=== PATIENT | male | born 1960 | race African-American/Black ===

== ENCOUNTER 2016-11-06 12:05 | Emergency (ER) | payer OTHER ==
--- NOTE | 2016-11-06 12:14 | ER Document Report ---
ED Medical Screen (RME) - General Chief Complaint: Headache Stated Complaint: HEAD ACHE Time seen by provider: 12:12 Mode of Arrival: Ambulatory Information source: Patient Notes: 56 yo male presents to ed for headache with elevated BP has hx of HTN TRAVEL OUTSIDE OF THE [place] IN LAST 30 DAYS: No - HPI Onset: Other - 3days Onset/Duration: Gradual Quality of pain: Throbbing Severity: Moderate Pain Level: 3 Associated Symptoms: Dizzy/lightheaded, Headache, Rhinorrhea, Sinus pain/ drainage, Other - htn. denies: Nausea, Vomiting Exacerbated by: Denies Relieved by: Denies Similar symptoms previously: Yes Recently seen / treated by doctor: Yes - Related Data Smoking: Non-smoker, Quit greater than 1 year Frequency of alcohol use: None Drug Abuse: None Allergies/Adverse Reactions: Penicillins Allergy (Verified 09/01/11 14:08) Past Medical History - Past Medical History Cardiac Medical History: Reports: Hx Hypertension Renal/ Medical History: Reports: Hx Kidney Stones - Immunizations Hx Diphtheria, Pertussis, Tetanus Vaccination: Yes
--- NOTE | 2016-11-06 13:54 | ER Document Report ---
ED Headache - General Chief Complaint: Headache Stated Complaint: HEAD ACHE Time seen by provider: 13:00 Mode of Arrival: Ambulatory Information source: Patient Notes: 56 yo hy;erlipidemic, htn [facility] due to sx of headache, worse on the left since wednesday, and vertigo when he stood yesterday, no weakness, but slept most of day. Hx CVA with right sided weakness in past. No known TIA. TRAVEL OUTSIDE OF THE [place] IN LAST 30 DAYS: No - Related Data Allergies/Adverse Reactions: Penicillins Allergy (Verified 11/06/16 12:12) prednisone Allergy (Verified 11/06/16 12:12) Past Medical History - General Information source: Patient - Social History Smoking Status: Former Smoker Chew tobacco use (# tins/day): No Frequency of alcohol use: None Drug Abuse: None Lives with: Spouse/Significant other Family History: None Patient has suicidal ideation: No Patient has homicidal ideation: No - Past Medical History Cardiac Medical History: Reports: Hx Hypercholesterolemia, Hx Hypertension Renal/ Medical History: Reports: Hx Kidney Stones Surgical Hx: Negative - Immunizations Hx Diphtheria, Pertussis, Tetanus Vaccination: Yes Review of Systems - Review of Systems Constitutional: No symptoms reported EENT: No symptoms reported Cardiovascular: No symptoms reported Respiratory: No symptoms reported Gastrointestinal: No symptoms reported Genitourinary: No symptoms reported Male Genitourinary: No symptoms reported Musculoskeletal: No symptoms reported Skin: No symptoms reported Hematologic/Lymphatic: No symptoms reported Neurological/Psychological: See HPI Physical Exam - Vital signs Vitals: Temp Pulse Resp BP Pulse Ox 97.8 F 84 16 134/87 H 96 11/06/16 12:14 11/06/16 12:14 11/06/16 12:14 11/06/16 12:14 11/06/16 12:14 Interpretation: Normal - General General appearance: Appears well, Alert - HEENT Head: Normocephalic, Atraumatic Eyes: Normal Conjunctiva: Normal Extraocular movements intact: Yes Pupils: PERRL Nerve palsy: No Tympanic membrane: Normal Mouth/Lips: Normal Pharynx: Normal Neck: Supple. No: Lymphadenopathy - Respiratory Respiratory status: No respiratory distress Chest status: Nontender Breath sounds: Normal Chest palpation: Normal - Cardiovascular Rhythm: Regular Heart sounds: Normal auscultation Murmur: No - Abdominal Inspection: Normal Distension: No distension Bowel sounds: Normal Tenderness: Nontender Organomegaly: No organomegaly - Back Back: Normal, Nontender - Extremities General upper extremity: Normal inspection, Nontender, Normal color, Normal ROM , Normal temperature General lower extremity: Normal inspection, Nontender, Normal color, Normal ROM , Normal temperature, Normal weight bearing. No: Jamal's sign - Neurological Neuro grossly intact: Yes Cognition: Normal Orientation: AAOx4 Edlma Coma Scale Eye Opening: Spontaneous Delma Coma Scale Verbal: Oriented Delma Coma Scale Motor: Obeys Commands [place] Coma Scale Total: 15 Speech: Normal Motor strength normal: LUE, RUE, LLE, RLE Sensory: Normal - Psychological Associated symptoms: Normal affect, Normal mood - Skin Skin Temperature: Warm Skin Moisture: Dry Skin Color: Normal Course - Re-evaluation Re-evalutation: 11/06/16 13:[address] Oropeza for any further testing needed, he examned pt. Negative HINTS testing. vitals stable. OK to go home. copy of ct report given to patient 11/07/16 17:11 - Vital Signs Vital signs: Temp Pulse Resp BP Pulse Ox 97.8 F 82 16 127/85 H 98 11/06/16 12:14 11/06/16 14:14 11/06/16 14:14 11/06/16 14:14 11/06/16 14:14 Discharge - Discharge Clinical Impression: vertigo yesterday Headache Qualifiers: Headache type: unspecified Headache chronicity pattern: acute headache Intractability: not intractable Qualified Code(s): R51 - Headache Condition: Good Disposition: HOME, SELF-CARE Instructions: Headache ([facility]), Meclizine ([facility]), Vertigo ([facility]) Additional Instructions: to er if symptoms recur copy of ct given to you [facility] Prescriptions: Meclizine HCl [Antivert 25 mg Tablet] 25 mg PO Q6HP PRN #20 tablet PRN Reason: Forms: Return to Work
[2016-11-06 14:24] VITALS: BP 127/85
== END 2016-11-06 14:25 | disposition home or self-care (01) ==
LOC: ER 12:05
DX: R51 Headache (principal); I10 Essential (primary) hypertension; Z86.73 Personal history of transient ischemic attack (TIA), and cerebral infarction without residual deficits; Z87.891 Personal history of nicotine dependence; Z88.0 Allergy status to penicillin; Z88.8 Allergy status to other drugs, medicaments and biological substances
CPT/HCPCS: 70450; 99284

== ENCOUNTER 2018-08-16 09:55 | Emergency (ER) | payer OTHER ==
--- NOTE | 2018-08-16 10:17 | ER Document Report ---
ED Medical Screen (RME) - General Chief Complaint: Abdominal Injury Stated Complaint: FALL,ABDOMINAL/BACK PAIN Time Seen by Provider: 08/16/18 10:02 Mode of Arrival: Ambulatory Information source: Patient Notes: 58-year-old male presents emergency department with complaints of lower back pain and lower abdominal pain s/p fall. Patient states that 2 days ago he fell through a floor. Patient states that he went down about 4 feet and landed on his abdomen. He denies any head injury or loss of consciousness. Patient states that he was able to get up and ambulate after the fall. He states that over the last 2 days he has been having lower back pain and lower abdominal pain. Patient describes the back pain as a burning sensation located in the left paraspinal muscles. He states that the pain is constant. It is worse with movement. He denies any alleviating factors. He is not taking any medication for the pain. Denies numbness, tingling, weakness, bowel or bladder incontinence. Patient states that he is currently on Plavix for CVA. Patient denies any melena, hematochezia, hematuria. I have greeted and performed a rapid initial assessment of this patient. A comprehensive ED assessment and evaluation of the patient, analysis of test results and completion of the medical decision making process will be conducted by additional ED providers. PHYSICAL EXAMINATION: GENERAL: Well-appearing, well-nourished and in no acute distress. HEAD: Atraumatic, normocephalic. EYES: Pupils equal round extraocular movements intact, conjunctiva are normal. ENT: Nares patent NECK: Normal range of motion LUNGS: No respiratory distress Musculoskeletal: Normal range of motion. Tenderness to palpation in the lumbar spine and Left paralumbar muscles. NEUROLOGICAL: Normal speech, normal gait. PSYCH: Normal mood, normal affect. SKIN: Warm, Dry, normal turgor, no rashes or lesions noted. TRAVEL OUTSIDE OF THE [place] IN LAST 30 DAYS: No - Related Data Allergies/Adverse Reactions: Penicillins Allergy (Verified 11/06/16 12:12) prednisone Allergy (Verified 11/06/16 12:12) Past Medical History - Social History Chew tobacco use (# tins/day): No Frequency of alcohol use: None Drug Abuse: None - Past Medical History Cardiac Medical History: Reports: Hx Hypercholesterolemia, Hx Hypertension Renal/ Medical History: Reports: Hx Kidney Stones. Denies: Hx Peritoneal Dialysis - Immunizations Hx Diphtheria, Pertussis, Tetanus Vaccination: Yes Physical Exam - Vital signs Vitals: Temp Pulse Resp BP Pulse Ox 97.8 F 72 16 146/93 H 98 08/16/18 10:03 08/16/18 10:03 08/16/18 10:03 08/16/18 10:03 08/16/18 10:03 Course - Vital Signs Vital signs: Temp Pulse Resp BP Pulse Ox 98.1 F 59 L 16 118/55 L 98 08/16/18 10:09 08/16/18 10:09 08/16/18 10:09 08/16/18 10:09 08/16/18 10:09
[2018-08-16 10:40] LABS: ABSOLUTE EOSINOPHILS # (AUTO) 0.3 10^3/uL (0.0-0.6); ABSOLUTE LYMPHOCYTES (AUTO) 1.5 10^3/uL (0.5-4.7); ABSOLUTE MONOCYTES (AUTO) 0.5 10^3/uL (0.1-1.4); ABSOLUTE NEUT (AUTO) 3.1 10^3/uL (1.7-8.2); BASOPHILS % (AUTO) 0.9 % (0-2); EOSINOPHILS % (AUTO) 5.2 % (0-6); HEMATOCRIT 42.1 % (37.9-51.0); HEMOGLOBIN 14.5 g/dL (13.5-17.0); LYMPHOCYTES % (AUTO) 28.2 % (13-45); MEAN CORPUSCULAR HEMOGLOBIN 30.4 pg (27.0-33.4); MEAN CORPUSCULAR HGB CONC 34.5 g/dL (32.0-36.0); MEAN CORPUSCULAR VOLUME 88 fl (80-97); MONOCYTES % (AUTO) 8.7 % (3-13); PLATELET COUNT 279 10^3/uL (150-450); RED BLOOD COUNT 4.78 10^6/uL (4.35-5.55); RED CELL DISTRIBUTION WIDTH 13.8 % (11.5-14.0); TOTAL CELLS COUNTED % (AUTO) 100 %; WHITE BLOOD COUNT 5.4 10^3/uL (4.0-10.5)
--- NOTE | 2018-08-16 10:41 | ER Document Report ---
ED General - General Chief Complaint: Abdominal Injury Stated Complaint: FALL,ABDOMINAL/BACK PAIN Time Seen by Provider: 08/16/18 10:02 Mode of Arrival: Ambulatory Notes: 58-year-old male presents emergency department with complaints of lower back pain and lower abdominal pain s/p fall 2 days ago he fell through a floor. Patient states that he went down about 4 feet and landed on his abdomen. He denies any head injury or loss of consciousness. Patient states that he was able to get up and ambulate after the fall. He states that over the last 2 days he has been having lower back pain and lower abdominal pain. Patient describes the back pain as a burning sensation located in the left paraspinal muscles. He states that the pain is constant. It is worse with movement. He denies any alleviating factors. TRAVEL OUTSIDE OF THE [place] IN LAST 30 DAYS: No - Related Data Allergies/Adverse Reactions: Penicillins Allergy (Verified 11/06/16 12:12) prednisone Allergy (Verified 11/06/16 12:12) Past Medical History - General Information source: Patient - Social History Smoking Status: Never Smoker Chew tobacco use (# tins/day): No Frequency of alcohol use: None Drug Abuse: None Family History: None Patient has suicidal ideation: No Patient has homicidal ideation: No - Past Medical History Cardiac Medical History: Reports: Hx Hypercholesterolemia, Hx Hypertension Renal/ Medical History: Reports: Hx Kidney Stones. Denies: Hx Peritoneal Dialysis - Immunizations Hx Diphtheria, Pertussis, Tetanus Vaccination: Yes Review of Systems - Review of Systems Constitutional: denies: Chills, Fever Cardiovascular: denies: Chest pain, Dyspnea Respiratory: denies: Short of breath Gastrointestinal: Abdominal pain. denies: Nausea, Vomiting, Blood streaked bowels, Black stools Genitourinary: denies: Dysuria, Hematuria Male Genitourinary: denies: Testicular pain Musculoskeletal: Back pain -: Yes All other systems reviewed and negative Physical Exam - Vital signs Vitals: Temp Pulse Resp BP Pulse Ox 97.8 F 72 16 146/93 H 98 08/16/18 10:03 08/16/18 10:03 08/16/18 10:03 08/16/18 10:03 08/16/18 10:03 - Notes Notes: GENERAL_APPEARANCE: well_nourished, alert, cooperative, no_acute_distress, no_ obvious_discomfort. VITALS: reviewed, see vital signs table. HEAD: no_swelling\tenderness on the head. EYES: PERRL, EOMI, conjunctiva_clear. NOSE: no_nasal_discharge. MOUTH: (-)decreased moisture. THROAT: no_throat_inflammation, no_airway_obstruction. no_lymphadenopathy NECK: supple, no_neck_tenderness, (-)thyromegaly. BACK: L4 paraspinal back_tenderness. CHEST_WALL: no_chest_tenderness. LUNGS: no_wheezing, no_rales, no_rhonchi, (-)accessory muscle use, good air exchange bilateral. HEART: normal_rate, normal_rhythm, normal_S1, normal_S2, (-)S3, (-)S4, no_ murmur, no_rub. ABDOMEN: normal_BS, soft, bilateral middle quadrant_abd_tenderness, (-)guarding , (-)rebound, no_organomegaly, no_abd_masses. EXTREMITIES: good pulses in all_extremities, no_swelling\tenderness in the extremities, no_edema. SKIN: warm, dry, good_color, no_rash. MENTAL_STATUS: speech_clear, oriented_X_3, normal_affect, responds_ appropriately to questions. NEURO: Neg Motor or Sensory Deficits on exam, CN 2-12 intact, DTR 2+ symmetric x 4, No cerbellar signs Course - Re-evaluation Re-evalutation: 08/16/18 10:40 58-year-old male presents to the emergency department with a fall. The patient was getting his house from her cane when he fell through some wet robson. He hit his abdomen. He is having abdomen and back pain. Will get a CT to assess for any kind of intra-abdominal trauma pathology. Free fluid. Back x-rays. 08/16/18 12:34 CT scans were normal without signs of free fluid in the abdomen no solid organ injury no obvious bowel injury. The back had some disc space narrowing but no fractures. His lab work was fairly normal except for a just a mildly elevated AST which may be just lab technique. Patient has no right upper quadrant abdominal discomfort. I spoke with the patient about this is likely just deep bruising in the abdomen and musculoskeletal type pain. I will give him some Flexeril for home just to help with relaxation and will have him use over-the- counter pain medicine and anti-inflammatories. He is okay with the plan I spoke with him and his . - Vital Signs Vital signs: Temp Pulse Resp BP Pulse Ox 98.1 F 59 L 16 118/55 L 98 08/16/18 10:09 08/16/18 10:09 08/16/18 10:09 08/16/18 10:09 08/16/18 10:09 - Laboratory Result Diagrams: 08/16/18 10:25 08/16/18 10:25 Laboratory results interpreted by me: 08/16/18 10:25 ALT 82 H - Diagnostic Test Radiology reviewed: Reports reviewed Radiology results interpreted by me: 08/16/18 12:33 Lumbar Spine X-Ray 08/16/18 10:13 IMPRESSION: Mild disc space narrowing at L5-S1. No acute findings. Abdomen/Pelvis CT 08/16/18 10:37 IMPRESSION: NO SIGNIFICANT OR ACUTE FINDING IN THE ABDOMEN OR PELVIS ON CT SCAN WITH IV CONTRAST. Discharge - Discharge Clinical Impression: Fall Qualifiers: Encounter type: initial encounter Qualified Code(s): W19.XXXA - Unspecified fall, initial encounter Injury of abdominal wall Qualifiers: Encounter type: initial encounter Qualified Code(s): S39.91XA - Unspecified injury of abdomen, initial encounter Low back sprain Qualifiers: Encounter type: initial encounter Qualified Code(s): S33.5XXA - Sprain of ligaments of lumbar spine, initial encounter Condition: Good Disposition: HOME, SELF-CARE Instructions: Low Back Pain ([facility]) Prescriptions: Cyclobenzaprine HCl [Flexeril 10 mg Tablet] 10 mg PO TIDP PRN #15 tab PRN Reason: Pain Scale Of 5 Forms: Return to School
[2018-08-16 10:48] LABS: APPEARANCE,URINE CLEAR; BILIRUBIN,URINE NEGATIVE (NEGATIVE); COLOR,URINE STRAW; GLUCOSE, URINE NEGATIVE (NEGATIVE); KETONES,URINE NEGATIVE (NEGATIVE); LEUKOCYTE ESTERASE,URINE NEGATIVE (NEGATIVE); NITRITE,URINE NEGATIVE (NEGATIVE); PROTEIN,URINE NEGATIVE (NEGATIVE); URINE SPECIFIC GRAVITY 1.014; UROBILINOGEN,URINE NEGATIVE mg/dL (<2.0)
--- NOTE | 2018-08-16 10:50 | RADIOLOGY REPORT (SQ) ---
EXAM DESCRIPTION: L SPINE 2 VIEWS COMPLETED DATE/TIME: 08/16/2018 10:40 am REASON FOR STUDY: fall COMPARISON: None. NUMBER OF VIEWS: Three views. TECHNIQUE: AP, lateral and sacral radiographic images acquired of the lumbar spine. LIMITATIONS: None. FINDINGS: MINERALIZATION: Normal. SEGMENTATION: Normal. No transitional anatomy. ALIGNMENT: Normal. VERTEBRAE: Maintained height. No fracture or worrisome bone lesion. DISCS: There is mild disc space narrowing at L5-S1. POSTERIOR ELEMENTS: Pedicles and facets are intact. No pars defect or posterior arch defects. HARDWARE: None in the spine. PARASPINAL SOFT TISSUES: Normal. PELVIS: Intact as visualized. No fractures or worrisome bone lesions. SI joints intact. OTHER: No other significant finding. IMPRESSION: Mild disc space narrowing at L5-S1. No acute findings. TECHNICAL DOCUMENTATION: JOB ID: [id number] [employer]- All Rights Reserved Reading location - IP/workstation name: [email or web address]
[2018-08-16 11:02] LABS: ALANINE AMINOTRANSFERASE 82 U/L (21-72); ALBUMIN 4.4 g/dL (3.5-5.0); ALKALINE PHOSPHATASE 98 U/L (38-126); ANION GAP 9 (5-19); ASPARTATE AMINO TRANSFERASE 39 U/L (17-59); BILIRUBIN,DIRECT 0.3 mg/dL (0.0-0.4); BILIRUBIN,TOTAL 0.8 mg/dL (0.2-1.3); BLOOD UREA NITROGEN 13 mg/dL (7-20); CALCIUM 9.8 mg/dL (8.4-10.2); CARBON DIOXIDE 29 mmol/L (22-30); CHLORIDE 104 mmol/L (98-107); GLUCOSE 100 mg/dL (75-110); LIPASE 77.2 U/L (23-300); SODIUM 141.6 mmol/L (137-145); TOTAL PROTEIN 7.7 g/dL (6.3-8.2)
--- NOTE | 2018-08-16 12:30 | RADIOLOGY REPORT (SQ) ---
EXAM DESCRIPTION: CT ABD/PELVIS WITH IV ONLY COMPLETED DATE/TIME: 08/16/2018 11:59 am REASON FOR STUDY: abd trauma fell between floor joists landing on abdomen. Periumbilical pain COMPARISON: None. TECHNIQUE: CT scan of the abdomen and pelvis performed using helical scanning technique with dynamic intravenous contrast injection. No oral contrast. Images reviewed with lung, soft tissue, and bone windows. Reconstructed coronal and sagittal MPR images reviewed. Delayed images for evaluation of the urinary system also acquired. All images stored on PACS. All CT scanners at this facility use dose modulation, iterative reconstruction, and/or weight based d osing when appropriate to reduce radiation dose to as low as reasonably achievable (ALARA). [facility]: Dose Right [facility]: CareDose [facility]: Dose Right [facility]: Teradose 4D [facility]: FiNC CONTRAST TYPE AND DOSE: contrast/concentration: Isovue 350.00 mg/ml; Total Contrast Delivered: 74.0 ml; Total Saline Delivered: 66.0 ml RENAL FUNCTION: Creatinine 0.98 RADIATION DOSE: CT Rad equipment meets quality standard of care and radiation dose reduction techniq ues were employed. CTDIvol: 19.5 - 20.7 mGy. DLP: 2371 mGy-cm.. LIMITATIONS: None. FINDINGS: LOWER CHEST: No significant findings. No nodules or infiltrates. LIVER: Normal size. No worrisome masses. No dilated ducts. Fatty infiltration, less than 1 cm benig n left lobe liver. SPLEEN: Normal size. No focal lesions. PANCREAS: No masses. No significant calcifications. No adjacent inflammation or peripancreatic fluid collections. Pancreatic duct not dilated. GALLBLADDER: No identified stones by CT criteria. No inflammatory changes to suggest cholecystitis. ADRENAL GLANDS: No significant masses or asymmetry. RIGHT KIDNEY AND URETER: No solid masses. No significant calcifications. No hydronephrosis or hyd roureter. LEFT KIDNEY AND URETER: No solid masses. 1.8 cm left lower pole parapelvic cyst. No significant alejandro cifications. No hydronephrosis or hydroureter. AORTA AND VESSELS: No aneurysm. No dissection. Renal arteries, SMA, celiac without stenosis. RETROPERITONEUM: No retroperitoneal adenopathy, hemorrhage or masses. BOWEL AND PERITONEAL CAVITY: No masses or inflammatory changes. No free fluid or peritoneal masses. No CT evidence of bowel obstruction APPENDIX: Normal. PELVIS: No mass. No free fluid. Normal bladder. Post prostatectomy ABDOMINAL WALL: Old healed incision in the supraumbilical midline anterior abdominal wall. No hernia . No anterior abdominal wall contusion BONES: No significant or acute findings. OTHER: Report discussed with Dr. Tolliver IMPRESSION: NO SIGNIFICANT OR ACUTE FINDING IN THE ABDOMEN OR PELVIS ON CT SCAN WITH IV CONTRAST. TECHNICAL DOCUMENTATION: JOB ID: [id number] Quality ID # [id number]: Final reports with documentation of one or more dose reduction techniques (e.g., Au tomated exposure control, adjustment of the mA and/or kV according to patient size, use of iterative reconstruction technique) 2010 [employer]- All Rights Reserved Reading location - IP/workstation name: [email or web address]
[2018-08-16 13:23] VITALS: BP 140/84
== END 2018-08-16 13:28 | disposition home or self-care (01) ==
LOC: ER 09:55
DX: S33.5XXA Sprain of ligaments of lumbar spine, initial encounter (principal); S39.91XA Unspecified injury of abdomen, initial encounter; W13.3XXA Fall through floor, initial encounter; I10 Essential (primary) hypertension; Z88.0 Allergy status to penicillin
CPT/HCPCS: 36415; 72100; 74177; 80053; 81001; 83690; 85025; 99284